=== PATIENT | male | born 1960 | race African-American/Black ===

== ENCOUNTER 2020-04-08 02:09 | Inpatient (IN) | payer MEDICAID ==
[~2020-04-08] VITALS: Ht 180.3 cm; Wt 74.2 kg
[2020-04-08 02:00] VITALS: BP 167/81
[2020-04-08 03:13] VITALS: BP 167/81
[2020-04-08 05:00] VITALS: BP 107/81
[2020-04-08] MEDS ORDERED: HYDROcodone-ACET 5/325MG TAB PO PRN (07:30)
[2020-04-08] MEDS ORDERED: ONDANSETRON HCL 4 MG/2 ML VIAL IV PRN (07:30)
[2020-04-08] MEDS ORDERED: NITROGLYCERIN 0.4 MG SL TAB SL PRN (07:45)
[2020-04-08] MEDS ORDERED: MORPHINE SULF INJ 2 MG/ML SYRINGE 1ML IV PRN (07:45)
[2020-04-08] MEDS ORDERED: HEPARIN SODIUM (PORCINE) 5000 UNITS/ML 1ML VIAL IV ONE (08:30)
[2020-04-08 09:44] LABS: Basophils # (auto) 0 10 ^3/uL (0-0.2); Basophils % (auto) 0.5 % (0.0-2.0); Eosinophils # (auto) 0 10 ^3/uL (0-0.8); Eosinophils % (auto) 0.3 % (0.0-7.0); Hematocrit 34.2 % (41.0-53.0); Hemoglobin 11.6 g/dL (13.5-17.5); Lymphocytes # (auto) 0.4 10 ^3/uL (0.4-5.4); Lymphocytes % (auto) 5.4 % (10.0-50.0); Mean Corpuscular Hemoglobin 28.8 pg (28.0-32.0); Mean Corpuscular Hgb Conc. 33.8 g/dL (32.0-36.0); Mean Corpuscular Volume 85.2 fL (80.0-100.0); Monocytes # (auto) 0.5 10 ^3/uL (0-1.3); Monocytes % (auto) 7.6 % (0.0-12.0); Neutrophils # (auto) 6.1 10 ^3/uL (1.6-8.6); Neutrophils % (auto) 86.2 % (37.0-80.0); Platelet Count (auto) 198 10^3/uL (140-450); Red Blood Cells 4.01 10^6/uL (4.5-5.90); Red Cell Distribution Width 17.5 % (11.8-14.3); White Blood Cell 7.1 10^3/uL (4.4-10.8)
[2020-04-08] MEDS ORDERED: ENOXAPARIN SOD 80 MG/0.8ML SYRINGE SC SCH (10:00)
[2020-04-08 10:04] LABS: Albumin 3.6 g/dL (3.4-5.0); BUN/Creatinine Ratio 11.7; Calcium 8.1 mg/dL (8.5-10.1); Magnesium 1.7 mg/dL (1.6-2.6); Potassium 4.2 mmol/L (3.5-5.1)
[2020-04-08 10:06] LABS: INR 1.04 (0.9-1.15); Partial Thromboplastin Time 26.3 sec (23.0-31.2)
[2020-04-08 10:07] LABS: Bilirubin, Total 0.6 mg/dL (0.2-1.0); Total Protein 6.9 g/dL (6.4-8.2)
[2020-04-08] MEDS: HEPARIN DRIP/D5W 100UNITS/ML 250 ML IV SCH (10:35)
[2020-04-08] MEDS: SODIUM CHLORIDE 0.9% 1,000 ML IV SCH ×2 (11:25→20:50)
[2020-04-08 12:49] VITALS: BP 122/68
[2020-04-08 12:54] LABS: Urine Bacteria FEW /hpf (None Seen); Urine Blood Negative /uL (Negative); Urine Specific Gravity 1.005 (1.001-1.035); Urine WBC 2 /hpf (0 - 3)
[2020-04-08] MEDS ORDERED: TRIA75TA55 PO (13:10)
[2020-04-08] MEDS ORDERED: TRAM50TA2 PO (13:10)
[2020-04-08] MEDS ORDERED: POM (13:11)
[2020-04-08] MEDS ORDERED: POM PO (13:14)
[2020-04-08] MEDS: HYDROcodone-ACET 5/325MG TAB PO PRN ×2 (13:27→22:18)
[2020-04-08 16:15] LABS: Protein, Urine 16.3 mg/dL (0.0-11.9)
[2020-04-08 16:32] VITALS: BP 115/73
[2020-04-08 18:24] LABS: INR 1.06 (0.9-1.15)
[2020-04-08 18:26] LABS: Partial Thromboplastin Time 118.7 sec (23.0-31.2)
[2020-04-08 22:00] VITALS: BP 108/75
[2020-04-09 01:00] VITALS: BP 125/75
[2020-04-09 02:17] LABS: Basophils # (auto) 0 10 ^3/uL (0-0.2); Basophils % (auto) 0.8 % (0.0-2.0); Eosinophils # (auto) 0.1 10 ^3/uL (0-0.8); Eosinophils % (auto) 1.3 % (0.0-7.0); Hematocrit 32.2 % (41.0-53.0); Hemoglobin 10.6 g/dL (13.5-17.5); Lymphocytes # (auto) 0.4 10 ^3/uL (0.4-5.4); Lymphocytes % (auto) 8.7 % (10.0-50.0); Mean Corpuscular Volume 84.7 fL (80.0-100.0); Monocytes # (auto) 0.5 10 ^3/uL (0-1.3); Neutrophils # (auto) 3.8 10 ^3/uL (1.6-8.6); Neutrophils % (auto) 78.2 % (37.0-80.0); Platelet Count (auto) 191 10^3/uL (140-450); Red Cell Distribution Width 17.4 % (11.8-14.3); White Blood Cell 4.8 10^3/uL (4.4-10.8)
[2020-04-09 02:40] LABS: INR 1.03 (0.9-1.15)
[2020-04-09 02:41] LABS: Calcium 7.8 mg/dL (8.5-10.1); Potassium 4.1 mmol/L (3.5-5.1)
[2020-04-09 02:58] LABS: Partial Thromboplastin Time 95.3 sec (23.0-31.2)
[2020-04-09 05:00] VITALS: BP 114/76
[2020-04-09 08:00] VITALS: BP 121/81
[2020-04-09] MEDS: HEPARIN DRIP/D5W 100UNITS/ML 250 ML IV SCH (08:30)
[2020-04-09] MEDS ORDERED: methIMAzole 5 MG TAB PO ONE ×2 (08:45→10:15)
[2020-04-09] MEDS ORDERED: ERGOCALCIFEROL 50,000 UNIT(1.25MG) CAP PO SCH (08:45)
[2020-04-09] MEDS: CHOLECALCIFEROL (VITD3) 2,000 UNIT CAP/TAB PO SCH (10:01)
[2020-04-09] MEDS: HYDROcodone-ACET 5/325MG TAB PO PRN ×3 (10:02→22:05)
[2020-04-09] MEDS: SODIUM CHLORIDE 0.9% 1,000 ML IV SCH ×2 (10:36→23:47)
[2020-04-09 11:25] LABS: INR 1.03 (0.9-1.15)
[2020-04-09 11:27] LABS: Partial Thromboplastin Time 102.7 sec (23.0-31.2)
[2020-04-09 13:29] LABS: INR 1.05 (0.9-1.15); Partial Thromboplastin Time 97.1 sec (23.0-31.2)
[2020-04-09 16:00] VITALS: BP 129/74
[2020-04-09] MEDS: methIMAzole 5 MG TAB PO SCH ×2 (16:14→22:05)
[2020-04-09 16:46] LABS: INR 1.02 (0.9-1.15)
[2020-04-09 16:51] LABS: Partial Thromboplastin Time 81.6 sec (23.0-31.2)
[2020-04-09 21:46] VITALS: BP 131/80
[2020-04-09] MEDS ORDERED: HYDROcodone-ACET 5/325MG TAB PO ONE (22:30)
[2020-04-09 22:46] LABS: Partial Thromboplastin Time 50.7 sec (23.0-31.2)
[2020-04-10 05:05] VITALS: BP 125/82
[2020-04-10 05:42] LABS: Calcium 7.8 mg/dL (8.5-10.1)
[2020-04-10 05:44] LABS: BUN/Creatinine Ratio 9.9
[2020-04-10 05:54] LABS: Partial Thromboplastin Time 28.5 sec (23.0-31.2)
[2020-04-10] MEDS: methIMAzole 5 MG TAB PO SCH ×3 (06:21→22:03)
[2020-04-10] MEDS: HYDROcodone-ACET 10/325MG TAB PO PRN ×3 (06:22→22:13)
[2020-04-10 08:00] VITALS: BP 127/78
[2020-04-10] MEDS: HEPARIN DRIP/D5W 100UNITS/ML 250 ML IV SCH (08:11)
[2020-04-10] MEDS: CHOLECALCIFEROL (VITD3) 2,000 UNIT CAP/TAB PO SCH (09:48)
[2020-04-10] MEDS: GENTAMICIN SULF 0.3% OPTH(EYE) OINT 3.5GM RIGHTEYE SCH ×2 (12:39→17:38)
[2020-04-10 12:49] VITALS: BP 138/82
[2020-04-10 13:17] LABS: Partial Thromboplastin Time 35.1 sec (23.0-31.2)
[2020-04-10 16:35] VITALS: BP 150/94
[2020-04-10 18:34] LABS: INR 1.01 (0.9-1.15); Partial Thromboplastin Time 42.1 sec (23.0-31.2)
[2020-04-10 21:09] VITALS: BP 129/85
[2020-04-11 00:27] LABS: Partial Thromboplastin Time 52.2 sec (23.0-31.2)
[2020-04-11] MEDS: GENTAMICIN SULF 0.3% OPTH(EYE) OINT 3.5GM RIGHTEYE SCH ×4 (00:54→17:35)
[2020-04-11 04:32] VITALS: BP 148/99
[2020-04-11] MEDS: methIMAzole 5 MG TAB PO SCH ×3 (05:31→21:39)
[2020-04-11 06:17] LABS: Basophils # (auto) 0 10 ^3/uL (0-0.2); Eosinophils # (auto) 0.2 10 ^3/uL (0-0.8); Eosinophils % (auto) 6.1 % (0.0-7.0); Hematocrit 30.4 % (41.0-53.0); Hemoglobin 10.5 g/dL (13.5-17.5); Lymphocytes # (auto) 0.5 10 ^3/uL (0.4-5.4); Lymphocytes % (auto) 16.5 % (10.0-50.0); Mean Corpuscular Hemoglobin 28.9 pg (28.0-32.0); Mean Corpuscular Hgb Conc. 34.4 g/dL (32.0-36.0); Monocytes # (auto) 0.4 10 ^3/uL (0-1.3); Monocytes % (auto) 12.9 % (0.0-12.0); Neutrophils # (auto) 2.1 10 ^3/uL (1.6-8.6); Neutrophils % (auto) 63.5 % (37.0-80.0); Nucleated Red Blood Cells % 0.5 %; Platelet Count (auto) 200 10^3/uL (140-450); Red Blood Cells 3.62 10^6/uL (4.5-5.90); White Blood Cell 3.3 10^3/uL (4.4-10.8)
[2020-04-11 06:34] LABS: INR 1.03 (0.9-1.15); Partial Thromboplastin Time 65.7 sec (23.0-31.2)
[2020-04-11] MEDS: HEPARIN DRIP/D5W 100UNITS/ML 250 ML IV SCH (08:30)
[2020-04-11] MEDS: CHOLECALCIFEROL (VITD3) 2,000 UNIT CAP/TAB PO SCH (09:52)
[2020-04-11 12:33] LABS: INR 1.01 (0.9-1.15); Partial Thromboplastin Time 55.2 sec (23.0-31.2)
[2020-04-11 13:00] VITALS: BP 124/86
[2020-04-11] MEDS: HYDROcodone-ACET 10/325MG TAB PO PRN ×2 (16:05→21:39)
[2020-04-11 22:00] VITALS: BP 138/77
[2020-04-12] MEDS: GENTAMICIN SULF 0.3% OPTH(EYE) OINT 3.5GM RIGHTEYE SCH ×5 (01:40→23:51)
[2020-04-12 05:00] VITALS: BP 129/83
[2020-04-12] MEDS: methIMAzole 5 MG TAB PO SCH ×3 (06:05→21:34)
[2020-04-12 07:02] LABS: Basophils # (auto) 0 10 ^3/uL (0-0.2); Eosinophils # (auto) 0.2 10 ^3/uL (0-0.8); Eosinophils % (auto) 3.7 % (0.0-7.0); Hematocrit 29.3 % (41.0-53.0); Lymphocytes # (auto) 0.4 10 ^3/uL (0.4-5.4); Lymphocytes % (auto) 10.4 % (10.0-50.0); Mean Corpuscular Hemoglobin 28.8 pg (28.0-32.0); Mean Corpuscular Hgb Conc. 34.1 g/dL (32.0-36.0); Mean Corpuscular Volume 84.6 fL (80.0-100.0); Monocytes # (auto) 0.5 10 ^3/uL (0-1.3); Monocytes % (auto) 12.1 % (0.0-12.0); Neutrophils % (auto) 72.8 % (37.0-80.0); Nucleated Red Blood Cells % 0.4 %; Platelet Count (auto) 226 10^3/uL (140-450); Red Blood Cells 3.46 10^6/uL (4.5-5.90); Red Cell Distribution Width 17.1 % (11.8-14.3); White Blood Cell 4.2 10^3/uL (4.4-10.8)
[2020-04-12 07:09] LABS: INR 1.01 (0.9-1.15); Partial Thromboplastin Time 64.9 sec (23.0-31.2)
[2020-04-12 07:17] LABS: Magnesium 1.5 mg/dL (1.6-2.6); Phosphorus 3.9 mg/dL (2.5-4.90)
[2020-04-12] MEDS: HYDROcodone-ACET 10/325MG TAB PO PRN ×3 (08:43→22:50)
[2020-04-12] MEDS: CHOLECALCIFEROL (VITD3) 2,000 UNIT CAP/TAB PO SCH (08:43)
[2020-04-12 09:00] VITALS: BP 139/90
[2020-04-12 12:53] VITALS: BP 148/89
[2020-04-12 16:58] VITALS: BP 131/85
[2020-04-12] MEDS: HEPARIN DRIP/D5W 100UNITS/ML 250 ML IV SCH (17:52)
[2020-04-12 22:00] VITALS: BP 139/90
[2020-04-13] MEDS: HYDROcodone-ACET 10/325MG TAB PO PRN (04:23)
[2020-04-13 05:00] VITALS: BP 128/83
[2020-04-13] MEDS: GENTAMICIN SULF 0.3% OPTH(EYE) OINT 3.5GM RIGHTEYE SCH (05:50)
[2020-04-13] MEDS: methIMAzole 5 MG TAB PO SCH (05:50)
[2020-04-13 06:32] LABS: Basophils # (auto) 0 10 ^3/uL (0-0.2); Basophils % (auto) 0.5 % (0.0-2.0); Eosinophils # (auto) 0.2 10 ^3/uL (0-0.8); Eosinophils % (auto) 4.4 % (0.0-7.0); Hematocrit 28.3 % (41.0-53.0); Hemoglobin 9.6 g/dL (13.5-17.5); Lymphocytes # (auto) 0.5 10 ^3/uL (0.4-5.4); Lymphocytes % (auto) 14.3 % (10.0-50.0); Mean Corpuscular Hemoglobin 28.9 pg (28.0-32.0); Mean Corpuscular Hgb Conc. 33.8 g/dL (32.0-36.0); Mean Corpuscular Volume 85.4 fL (80.0-100.0); Monocytes # (auto) 0.5 10 ^3/uL (0-1.3); Monocytes % (auto) 12.4 % (0.0-12.0); Neutrophils # (auto) 2.6 10 ^3/uL (1.6-8.6); Neutrophils % (auto) 68.4 % (37.0-80.0); Nucleated Red Blood Cells % 0.6 %; Platelet Count (auto) 221 10^3/uL (140-450); Red Blood Cells 3.32 10^6/uL (4.5-5.90); Red Cell Distribution Width 17.4 % (11.8-14.3); White Blood Cell 3.8 10^3/uL (4.4-10.8)
[2020-04-13 06:47] LABS: BUN/Creatinine Ratio 11.3; Calcium 8.2 mg/dL (8.5-10.1)
[2020-04-13] MEDS: HEPARIN DRIP/D5W 100UNITS/ML 250 ML IV SCH (08:18)
[2020-04-13 09:00] VITALS: BP 151/90
[2020-04-13] MEDS ORDERED: APIXABAN 5 MG TAB PO ONE (09:00)
[2020-04-13] MEDS: CHOLECALCIFEROL (VITD3) 2,000 UNIT CAP/TAB PO SCH (09:14)
== END 2020-04-13 12:28 | disposition home or self-care (01) | DRG 134 ==
LOC: TELE-EAST 02:09
PROVIDERS: ADMIT Nurse Practitioner; ATTEND Internal Medicine
DX: I26.99 Other pulmonary embolism without acute cor pulmonale (principal); I21.4 Non-ST elevation (NSTEMI) myocardial infarction; N17.0 Acute kidney failure with tubular necrosis; I50.33 Acute on chronic diastolic (congestive) heart failure; C90.00 Multiple myeloma not having achieved remission; D68.59 Other primary thrombophilia; I13.0 Hypertensive heart and chronic kidney disease with heart failure and stage 1 through stage 4 chronic kidney disease, or unspecified chronic kidney disease; N25.81 Secondary hyperparathyroidism of renal origin; N18.31 Chronic kidney disease, stage 3a; Z20.822 Contact with and (suspected) exposure to COVID-19; E05.90 Thyrotoxicosis, unspecified without thyrotoxic crisis or storm; I82.403 Acute embolism and thrombosis of unspecified deep veins of lower extremity, bilateral; E55.9 Vitamin D deficiency, unspecified; W18.39XA Other fall on same level, initial encounter; Y93.89 Activity, other specified; Y92.89 Other specified places as the place of occurrence of the external cause; Y99.8 Other external cause status
CPT/HCPCS: 36415; 70450; 71045; 71250; 74176; 78582; 80048; 80053; 80061; 81001; 82306; 82570; 83036; 83735; 83880; 83970; 84100; 84156; 84166; 84300; 84439; 84443; 84484; 85025; 85379; 85610; 85730; 87426; 93306; 93970; G0378; J1642

== ENCOUNTER → 2020-11-23 | Outpatient (CLI) | payer MEDICAID ==
[~2020-11-23] MED LIST: POM PO; TRAM50TA2 PO; TRIA75TA55 PO
[2020-11-23 14:10] LABS: Basophils # (auto) 0.1 10 ^3/uL (0-0.2); Basophils % (auto) 1.8 % (0.0-2.0); Eosinophils # (auto) 0.3 10 ^3/uL (0-0.8); Eosinophils % (auto) 7.8 % (0.0-7.0); Hematocrit 36.6 % (41.0-53.0); Hemoglobin 12.4 g/dL (13.5-17.5); Lymphocytes # (auto) 1.1 10 ^3/uL (0.4-5.4); Lymphocytes % (auto) 33.2 % (10.0-50.0); Mean Corpuscular Hemoglobin 30.2 pg (28.0-32.0); Mean Corpuscular Hgb Conc. 33.9 g/dL (32.0-36.0); Mean Corpuscular Volume 89.3 fL (80.0-100.0); Monocytes # (auto) 0.4 10 ^3/uL (0-1.3); Monocytes % (auto) 12.7 % (0.0-12.0); Neutrophils # (auto) 1.5 10 ^3/uL (1.6-8.6); Neutrophils % (auto) 44.5 % (37.0-80.0); Nucleated Red Blood Cells % 0.2 %; Red Cell Distribution Width 15.3 % (11.8-14.3); White Blood Cell 3.4 10^3/uL (4.4-10.8)
[2020-11-23 14:21] LABS: BUN/Creatinine Ratio 8.7; Calcium 8.3 mg/dL (8.5-10.1)
== END | disposition home or self-care (01) ==
LOC: LAB 13:51
PROVIDERS: ATTEND Internal Medicine
DX: E05.90 Thyrotoxicosis, unspecified without thyrotoxic crisis or storm (principal)
CPT/HCPCS: 36415; 80048; 84439; 84443; 85025